=== PATIENT | male | born 1990 | race Two or more races ===

== ENCOUNTER 2020-01-06 20:02 | Emergency (ER) | payer MEDICAID, OTHER ==
[~2020-01-06] VITALS: Ht 172.7 cm; Wt 63.5 kg
[2020-01-06] MEDS ORDERED: TETANUS-DIPTH-ACEL PERTUSSIS 0.5ML SYR Tdap IM ONE (21:30)
[2020-01-06] MEDS ORDERED: LIDOCAINE 1% (LOCAL ANESTH.) PF 5ml SDV ID ONE (21:30)
[2020-01-06 22:10] VITALS: BP 148/86
== END 2020-01-06 22:21 | disposition home or self-care (01) ==
LOC: ER 20:02
DX: S61.412A Laceration without foreign body of left hand, initial encounter (principal); W25.XXXA Contact with sharp glass, initial encounter; Y93.89 Activity, other specified; Y92.89 Other specified places as the place of occurrence of the external cause; Y99.8 Other external cause status
CPT/HCPCS: 12002; 73120; 90471; 90715